=== PATIENT | female | born 1945 | race Caucasian/White ===

== ENCOUNTER → 2018-06-21 | Outpatient (CLI) | payer OTHER, MEDICARE ==
[~2018-06-21] MED LIST: ESTR42.53 VG; NONE PER PT
== END | disposition home or self-care (01) ==
LOC: STAR 09:50
PROVIDERS: ATTEND Obstetrics & Gynecology Female Pelvic Medicine and Reconstructive Surgery
DX: Z01.818 Encounter for other preprocedural examination (principal); N81.4 Uterovaginal prolapse, unspecified; N39.3 Stress incontinence (female) (male)
CPT/HCPCS: 93005

== ENCOUNTER 2018-06-28 06:02 | Day surgery (SDC) | payer OTHER, MEDICARE ==
[~2018-06-28] VITALS: Ht 166.4 cm; Wt 76.0 kg
[2018-06-28] MEDS ORDERED: BUPIVACAINE/PF-EPI 0.25% 1:200K ONE (06:37)
[2018-06-28] MEDS ORDERED: NEOMY/POLYMYXIN B GU IRR. 1 ML IRRIG ONE (06:37)
[2018-06-28 06:43] VITALS: BP 110/76
[2018-06-28] MEDS ORDERED: LACTATED RINGERS 1,000 ML IV SCH (06:43)
[2018-06-28] MEDS ORDERED: MIDAZOLAM 1 MG/ML, 2ML ONE (07:03)
[2018-06-28] MEDS ORDERED: FENTANYL PF 250 MCG/5ML ONE (07:03)
[2018-06-28] MEDS ORDERED: SCOPOLAMINE PATCH, 1.5MG PATCH.TD72 TD ONE ×2 (07:14→07:30)
[2018-06-28] MEDS ORDERED: LABETALOL 5MG/ML, 20ML IV PRN (07:30)
[2018-06-28] MEDS ORDERED: ONDANSETRON 2MG/ML, 2ML IVPush PRN ×2 (07:30→14:00)
[2018-06-28] MEDS ORDERED: hydrALAzine 20 MG/ML, 1ML IV PRN (07:30)
[2018-06-28] MEDS ORDERED: PROMETHAZINE 25 MG/ML, 1ML IV PRN (07:30)
[2018-06-28] MEDS ORDERED: HYDROmorphone 1 MG/ML, 1ML IV PRN (07:30)
[2018-06-28] MEDS ORDERED: METOCLOPRAMIDE 5 MG/ML, 2ML IV PRN (07:30)
[2018-06-28] MEDS ORDERED: ALBUTEROL SULFATE 2.5 MG/3 ML NPPB PRN (07:30)
[2018-06-28] MEDS ORDERED: KETOROLAC 30 MG/1 ML IV PRN (07:30)
[2018-06-28] MEDS ORDERED: OXYcodone 5 MG/5 ML ORAL.SOL UDC ONE ×2 (09:19→10:07)
[2018-06-28] MEDS ORDERED: FENTANYL PF 100 MCG/2ML ONE (09:19)
[2018-06-28] MEDS: FENTANYL PF 100 MCG/2ML IV PRN ×3 (09:21→09:59)
[2018-06-28] MEDS: OXYcodone 5 MG/5 ML ORAL.SOL UDC PO PRN ×2 (09:25→10:08)
[2018-06-28] MEDS ORDERED: MEPERIDINE/PF 50 MG/ML ONE (09:29)
[2018-06-28] MEDS: MEPERIDINE/PF 25MG/0.5ML IVPush PRN ×2 (09:30→10:06)
[2018-06-28] MEDS ORDERED: PROMETHAZINE 25 MG/ML, 1ML IM ONE (11:30)
[2018-06-28] MEDS ORDERED: PROMETHAZINE 25 MG/ML, 1ML ONE (11:31)
[2018-06-28] MEDS ORDERED: OXYcodone/APAP 5/325MG TABLET ONE (13:58)
[2018-06-28] MEDS ORDERED: HYDROmorphone 2 MG/ML, 1ML IVPush PRN (14:00)
[2018-06-28] MEDS ORDERED: OXYcodone/APAP 5/325MG TABLET PO PRN (14:00)
== END 2018-06-28 14:55 | disposition home or self-care (01) ==
LOC: OUT 06:02
PROVIDERS: ATTEND Obstetrics & Gynecology Female Pelvic Medicine and Reconstructive Surgery
DX: D25.1 Intramural leiomyoma of uterus (principal); N84.0 Polyp of corpus uteri; N81.4 Uterovaginal prolapse, unspecified; N39.46 Mixed incontinence; N88.8 Other specified noninflammatory disorders of cervix uteri; N94.89 Other specified conditions associated with female genital organs and menstrual cycle; Z87.39 Personal history of other diseases of the musculoskeletal system and connective tissue; Z72.89 Other problems related to lifestyle; Z88.8 Allergy status to other drugs, medicaments and biological substances
CPT/HCPCS: 57265; 57282; 57288; 58552; 88307; J2175; J2250; J2550; J3010; J7120; C1771